=== PATIENT | female | born 1970 | race Asian ===

== ENCOUNTER 2018-04-19 07:31 | Inpatient (IN) | payer OTHER ==
[2018-04-18 09:00] LABS: EOSINOPHILS # (AUTO) 0.2 (0.0-0.4); EOSINOPHILS % 4.7 % (0.0-6.0); HEMATOCRIT 28.8 % (34.2-44.1); HEMOGLOBIN 8.4 g/dL (12.0-16.0); LYMPHOCYTES # (AUTO) 1.7 (1.0-3.2); LYMPHOCYTES % 42.2 % (18.0-39.1); MEAN CORPUSCULAR HEMOGLOBIN 20.4 pg (28-32); MEAN CORPUSCULAR HGB CONC 29.2 g/dL (31-35); MEAN CORPUSCULAR VOLUME 70.1 fL (81-99); MONOCYTES # (AUTO) 0.4 (0.2-0.8); MONOCYTES % 8.9 % (4.4-11.3); NEUTROPHILS # (AUTO) 1.7 (2.1-6.9); PLATELET COUNT 406 x10e3/uL (140-360); RED BLOOD COUNT 4.11 x10e6/uL (3.6-5.1); RED CELL DISTRIBUTION WIDTH 18.4 % (11.7-14.4)
[2018-04-18 09:19] LABS: ALANINE AMINOTRANSFERASE 12 IU/L (0-55); ALBUMIN 3.6 g/dL (3.5-5.0); ALBUMIN/GLOBULIN RATIO 1.2 (0.8-2.0); ALKALINE PHOSPHATASE 41 IU/L (40-150); ANION GAP 12.1 mmol/L (8-16); BLOOD UREA NITROGEN 10 mg/dL (7-26); BUN/CREATININE RATIO 14 (6-25); CALCIUM 8.5 mg/dL (8.4-10.2); CARBON DIOXIDE 22 mmol/L (22-29); CHLORIDE 108 mmol/L (98-107); CREATININE, SERUM 0.69 mg/dL (0.57-1.11); EST GLOMERULAR FILTRATION RATE > 60 ML/MIN (60-); GLUCOSE 84 mg/dL (74-118); POTASSIUM 4.1 mmol/L (3.5-5.1); SODIUM 138 mmol/L (136-145)
[2018-04-18 13:39] LABS: EOSINOPHILS % (MANUAL) 5 % (0-7); LYMPHOCYTES % (MANUAL) 47 % (19-48); MONOCYTES % (MANUAL) 9 % (3.4-9.0); MYELOCYTES % (MANUAL) 1 % (0-0); NEUTROPHILS % (MANUAL) 38 % (40-74)
[2018-04-18 13:40] LABS: RBC MORPHOLOGY COMMENT ABNORMAL
[2018-04-18 13:41] LABS: PLATELET ESTIMATE SLIGHTLY INCREASED
[2018-04-18 13:42] LABS: ANISOCYTOSIS MODERATE; ELLIPTOCYTE, RBC SLIGHT; HYPOCHROMASIA MODERATE; PLATELET MORPHOLOGY COMMENT NORMAL
[~2018-04-19] VITALS: Ht 157.5 cm; Wt 57.2 kg
--- OUTSIDE RECORDS SUMMARY | 2018-04-19 07:33 | XMS REPORT | Continuity of Care Document ---
Author Author [facility] Interface Address Unknown Phone Unavailable Problems Problem Status Onset Date Classification Date Reported Comments Source VOMITING/FEVER/WEAKNESS Active 01/26/2013 [facility] Medications Medication Details Route Status Patient Instructions Ordering Provider Order Date Source Cipro 500 mg oral tablet 500 mg, 1 tab, PO, Q12H, 6 tab, Substitution Allowed, TAB Active Lisandro 01/27/2013 [facility] Zofran ODT 4 mg oral tablet, disintegrating 4 mg, 1 tab, PO, BID, PRN, Dissolve tab under tongue, 10 tab, Nausea and Vomiting, Substitution AllowedDissolve tab under tongue Active Lisandro 01/27/2013 [facility] Ativan 1 mg, Route: IVP, Drug form: INJ, ONCE, Dosing Weight 52.727, kg, Priority: STAT, Start date: 01/27/13 1:07:00, Stop date: 01/27/13 1:07:00 Inactive Lisandro 01/27/2013 [facility] Cipro 500 mg, Route: PO, ONCE, Dosing Weight 52.727, kg, Priority: STAT, Start date: 01/27/13 0:44:00, Stop date: 01/27/13 0:44:00 Inactive Lisandro 01/27/2013 [facility] potassium chloride 20 mEq, Route: PO, Drug form: LIQ, ONCE, Dosing Weight 52.727, kg, Priority: Routine, Start date: 01/27/13 0:42:00, Stop date: 01/27/13 0:42:00 Inactive Lisandro 01/27/2013 [facility] ketorolac 30 mg, Route: IVP, Drug form: INJ, ONCE, Dosing Weight 52.727, kg, Priority: STAT, Start date: 01/26/13 23:01:00, Stop date: 01/26/13 23:01:00 Inactive Lisandro 01/27/2013 [facility] Zofran 4 mg, Route: IVP, Drug form: INJ, ONCE, Dosing Weight 52.727, kg, Priority: STAT, Start date: 01/26/13 23:01:00, Stop date: 01/26/13 23:01:00 Inactive [place] 01/27/2013 [facility] Sodium Chloride 0.9% (Bolus) IV 1,000 mL 1,000 mL, Rate: 1,000 ml/hr, Infuse over: 1 hr, Route: IV, Dosing Weight 52.727 kg, Total Volume: 1,000, Priority: STAT, Start date: 01/26/13 23:01:00, Duration: 1 doses or times, Stop date: 01/27/13 0:00:00, Bolus DoseBolus Dose Inactive [place] 01/27/2013 [facility] ondansetron 4 mg, Route: IVP, Drug form: INJ, ONCE, Dosing Weight 52.727, kg, Priority: STAT, Start date: 01/26/13 23:01:00, Stop date: 01/26/13 23:01:00 Inactive [place] 01/27/2013 [facility] Sodium Chloride 0.9% (Bolus) IV 1000 mL 1,000 mL, Rate: 1,000 ml/hr, Infuse over: 1 hr, Route: IV, Dosing Weight 52.727 kg, Total Volume: 1,000, Priority: STAT, Start date: 01/26/13 23:01:00, Duration: 1 doses or times, Stop date: 01/27/13 0:00:00, Bolus DoseBolus Dose Inactive [place] 01/27/2013 [facility] Allergies, Adverse Reactions, Alerts Substance Category Reaction Severity Reaction type Status Date Reported Comments Source Immunizations Immunization Date Given Site Status Last Updated Comments Source Results Order Name Results Value Reference Range Date Interpretation Comments Source VIRAL - SEROLOGY Influ A Negative (01/26/2013 23:15:00) Negative 01/27/2013 Normal [facility] VIRAL - SEROLOGY Influ B Negative 1 (01/26/2013 23:15:00) Negative 01/27/2013 Normal 1Interpretive Data: Influenza A&B Antigen: Due to the low sensitivity of this test a negative result does not exclude influenza virus infection. A diagnosis of influenza should be considered based on a patient's clinical presentation and empiric antiviral treatment should be considered, if indicated. If more conclusive testing is desired, follow-up confirmatory testing with either viral culture or PCR is warranted. [facility] CHEMISTRY CK-MB INDEX null 0.0 - 2.5 01/27/2013 Normal [facility] CHEMISTRY CK MB null 0.5 - 3.6 01/27/2013 Normal [facility] CHEMISTRY Troponin-I null 0.00 - 0.40 01/27/2013 Normal [facility] CHEMISTRY Total CK 51 unit/L 12 - 191 01/27/2013 Normal [facility] CHEMISTRY U Preg Negative (01/26/2013 22:35:00) Negative 01/27/2013 Normal [facility] CHEMISTRY AGAP 10.1 meq/L 10.0 - 20.0 01/27/2013 Normal [facility] CHEMISTRY B/C Ratio 15 6 - 25 01/27/2013 Normal [facility] CHEMISTRY Globulin 5.0 g/dL 2.0 - 4.0 01/27/2013 HI [facility] CHEMISTRY A/G Ratio 0.7 0.7 - 1.6 01/27/2013 Normal [facility] CHEMISTRY Potassium Lvl 3.1 meq/L 3.5 - 5.1 01/27/2013 LOW [facility] CHEMISTRY Sodium Lvl 132 meq/L 135 - 145 01/27/2013 LOW [facility] CHEMISTRY Chloride Lvl 98 meq/L 95 - 109 01/27/2013 Normal [facility] CHEMISTRY eGFR 63 mL/min/1.73m2 01/27/2013 2Result Comment: The eGFR is calculated using the CKD-EPI formula. In most young, healthy individuals the eGFR will be >90 mL/min/1.73m2. The eGFR declines with age. An eGFR of 60-89 may be normal in some populations, particularly the elderly, for whom the CKD-EPI formula has not been extensively validated. Use of the eGFR is not recommended in the following populations: Individuals with unstable creatinine concentrations, including patients and those with serious co-morbid conditions. Patients with extremes in muscle mass or diet. The data above are obtained from the National Kidney Disease Education Program (NKDEP) which additionally recommends that when the eGFR is used in patients with extremes of body mass index for purposes of drug dosing, the eGFR should be multiplied by the estimated BMI. [facility] CHEMISTRY ASPARTATE TRANSAMINASE 34 unit/L 0 - 37 01/27/2013 Normal [facility] CHEMISTRY Bili Total 0.7 mg/dL 0.2 - 1.3 01/27/2013 Normal [facility] CHEMISTRY Albumin Lvl 3.6 g/dL 3.5 - 5.0 01/27/2013 Normal [facility] CHEMISTRY ALANINE AMINOTRANSFERASE 26 unit/L 0 - 65 01/27/2013 Normal [facility] CHEMISTRY Calcium Lvl 9.3 mg/dL 8.5 - 10.5 01/27/2013 Normal [facility] CHEMISTRY Alk Phos 86 unit/L 39 - 136 01/27/2013 Normal [facility] CHEMISTRY Creatinine Lvl 1.1 mg/dL 0.5 - 1.4 01/27/2013 Normal [facility] CHEMISTRY BUN 16 mg/dL 7 - 22 01/27/2013 Normal [facility] CHEMISTRY Glucose Lvl 114 mg/dL 70 - 99 01/27/2013 HI 3Interpretive Data: Adult reference range values reflect the clinical guidelines of the [place] [employer]. [facility] CHEMISTRY Total Protein 8.6 g/dL 6.4 - 8.4 01/27/2013 HI [facility] CHEMISTRY CO2 27 meq/L 24 - 32 01/27/2013 Normal [facility] HEMATOLOGY Lymphocytes 6.2 % 20.0 - 40.0 01/27/2013 LOW [facility] HEMATOLOGY Segs 86.8 % 45.0 - 75.0 01/27/2013 [place] [facility] HEMATOLOGY Monocytes 7.0 % 2.0 - 12.0 01/27/2013 Normal [facility] HEMATOLOGY Eosinophils 0.0 % 0.0 - 4.0 01/27/2013 Normal [facility] HEMATOLOGY Basophils 0.0 % 0.0 - 1.0 01/27/2013 Normal [facility] HEMATOLOGY Segs-Bands # 9.7 K/CMM 1.5 - 8.1 01/27/2013 HI [facility] HEMATOLOGY Lymphocytes # 0.7 K/CMM 1.0 - 5.5 01/27/2013 LOW [facility] HEMATOLOGY Polychrom Slight (01/26/2013 22:35:00) None Seen 01/27/2013 Normal [facility] HEMATOLOGY Plt Morph Normal (01/26/2013 22:35:00) 01/27/2013 Normal [facility] HEMATOLOGY Eosinophils # 0.0 K/CMM 0.0 - 0.5 01/27/2013 Normal [facility] HEMATOLOGY Monocytes # 0.8 K/CMM 0.0 - 0.8 01/27/2013 Normal [facility] HEMATOLOGY Schistocyte 1-3 per HPF (01/26/2013 22:35:00) None Seen 01/27/2013 Normal [facility] HEMATOLOGY Elliptocyte Slight *ABN* (01/26/2013 22:35:00) None Seen 01/27/2013 ABN [facility] HEMATOLOGY Hypochrom Slight (01/26/2013 22:35:00) None Seen 01/27/2013 Normal [facility] HEMATOLOGY Microcyte 1+ *ABN* (01/26/2013 22:35:00) None Seen 01/27/2013 ABN [facility] HEMATOLOGY Basophils # 0.0 K/CMM 0.0 - 0.2 01/27/2013 Normal [facility] HEMATOLOGY Hgb 9.1 g/dL 12.0 - 16.0 01/27/2013 [facility] HEMATOLOGY Hct 28.9 % 36.0 - 48.0 01/27/2013 [facility] HEMATOLOGY RBC X 10x6 4.16 M/CMM 4.20 - 5.40 01/27/2013 [facility] HEMATOLOGY MCV 69.3 fL 81.0 - 99.0 01/27/2013 [facility] HEMATOLOGY MCH 21.9 pg 27.0 - 31.0 01/27/2013 [facility] HEMATOLOGY RDW 19.1 % 11.5 - 14.5 01/27/2013 [facility] HEMATOLOGY Platelet 291 K/CMM 133 - 450 01/27/2013 Normal [facility] HEMATOLOGY MCHC 31.6 g/dL 32.0 - 36.0 01/27/2013 [facility] HEMATOLOGY MPV 8.1 fL 7.4 - 10.4 01/27/2013 Normal [facility] HEMATOLOGY WBC X 10x3 11.2 K/CMM 3.7 - 10.4 01/27/2013 [facility] URINALYSIS UA Bili Negative *NA* (01/26/2013 22:35:00) Negative 01/27/2013 [facility] URINALYSIS UA Urobilinogen 2.0 mg/dL 0.1 - 1.0 01/27/2013 [facility] URINALYSIS UA Blood Small *ABN* (01/26/2013 22:35:00) Negative 01/27/2013 ABN [facility] URINALYSIS UA Mucus Few /LPF None Seen 01/27/2013 [facility] URINALYSIS UA Sq Epi Moderate /LPF Few 01/27/2013 ABN [facility] URINALYSIS UA Nitrite Positive *ABN* (01/26/2013 22:35:00) Negative 01/27/2013 ABN [facility] URINALYSIS UA Leuk Est Moderate *ABN* (01/26/2013 22:35:00) Negative 01/27/2013 [facility] URINALYSIS UA Bacteria Many /HPF None Seen 01/27/2013 ABN [facility] URINALYSIS UA RBC 4 /HPF 0 - 2 01/27/2013 HI [facility] URINALYSIS UA WBC 35 /HPF 0 - 5 01/27/2013 HI [facility] URINALYSIS UA Ketones 20 mg/dL Negative 01/27/2013 ABN [facility] URINALYSIS UA Glucose Negative mg/dL Negative 01/27/2013 [facility] URINALYSIS UA Protein 30 mg/dL Negative 01/27/2013 ABN [facility] URINALYSIS UA pH 5.0 5.0 - 8.0 01/27/2013 Normal [facility] URINALYSIS UA Color Yellow *NA* (01/26/2013 22:35:00) Yellow 01/27/2013 [facility] URINALYSIS UA Turbidity Marked *ABN* (01/26/2013 22:35:00) Clear 01/27/2013 ABN [facility] URINALYSIS UA Spec Grav 1.011 <=1.030 01/27/2013 Normal [facility] Vital Signs Vital Sign Value Date Comments Source Heart Rate 83 01/27/2013 [facility] Temperature Oral (F) 98.5 F 01/27/2013 [facility] Diastolic (mm Hg) 70 01/27/2013 [facility] Systolic (mm Hg) 102 01/27/2013 [facility] Respitory Rate 16 01/27/2013 [facility] Systolic (mm Hg) 101 01/27/2013 [facility] Diastolic (mm Hg) 60 01/27/2013 [facility] Respitory Rate 16 01/27/2013 [facility] Heart Rate 92 01/27/2013 [facility] Diastolic (mm Hg) 55 01/27/2013 [facility] Systolic (mm Hg) 99 01/27/2013 [facility] Temperature Oral (F) 98.7 F 01/27/2013 [facility] Respitory Rate 18 01/27/2013 [facility] Heart Rate 91 01/27/2013 [facility] Weight 52.727 01/27/2013 [facility] Temperature Oral (F) 98.2 F 01/27/2013 [facility] Height 152.4 cm 01/27/2013 [facility] Encounters Location Location Details Encounter Type Encounter Number Reason For Visit Attending Provider ADM Date DC Date Status Source [facility] Emergency [id number] SANCHEZ HERNANDEZ 01/26/2013 01/27/2013 Active [facility] Procedures Procedure Code Date Perfomer Comments Source Emergency department visit for the evaluation and management of a patient, which requires these 3 garay components within the constraints imposed by the urgency of the patient's clinical condition and/or mental status: A comprehensive history; A comprehensi 39670 01/27/2013 [facility] Injection or Infusion of Other Therapeutic or Prophylactic Substance 99.29 01/27/2013 [facility] Intravenous infusion, hydration; each additional hour (List separately in addition to code for primary procedure) 22223 01/27/2013 [facility] Therapeutic, prophylactic, or diagnostic injection (specify substance or drug); each additional sequential intravenous push of a new substance/drug (List separately in addition to code for primary procedure) 04887 01/27/2013 [facility] Therapeutic, prophylactic, or diagnostic injection (specify substance or drug); intravenous push, single or initial substance/drug 04227 01/27/2013 [facility]
--- OUTSIDE RECORDS SUMMARY | 2018-04-19 07:34 | XMS REPORT | CCD ---
Author Author Auto Generated Organization [facility] Address Unknown Phone Unavailable Care Team Providers Care Plate Furnace Operator Name Role Phone Mary Ann Mcmahon CP Allergies, Adverse Reactions, Alerts Substance Reaction Status NKDA Active Medications Medication Instructions Start Date End Date Status Cipro 500 mg oral 500 mg, 1 tab, PO, Q12H, 6 tab, 01/27/2013 01/30/2013 Ordered tablet Substitution Allowed, TAB Zofran ODT 4 mg oral 4 mg, 1 tab, PO, BID, PRN, Dissolve 01/27/2013 Ordered tablet, tab under tongue, 10 tab, Nausea disintegrating and Vomiting, Substitution Allowed Dissolve tab under tongue Cipro 500 mg, Route: PO, ONCE, Dosing 01/27/2013 01/27/2013 Completed Weight 52.727, kg, Priority: STAT, Start date: 01/27/13 0:44:00, Stop date: 01/27/13 0:44:00 potassium chloride 20 mEq, Route: PO, Drug form: LIQ, 01/27/2013 01/27/2013 Completed ONCE, Dosing Weight 52.727, kg, Priority: Routine, Start date: 01/27/13 0:42:00, Stop date: 01/27/13 0:42:00 ketorolac 30 mg, Route: IVP, Drug form: INJ, 01/26/2013 01/26/2013 Completed ONCE, Dosing Weight 52.727, kg, Priority: STAT, Start date: 01/26/13 23:01:00, Stop date: 01/26/13 23:01:00 Zofran 4 mg, Route: IVP, Drug form: INJ, 01/26/2013 01/26/2013 Completed ONCE, Dosing Weight 52.727, kg, Priority: STAT, Start date: 01/26/13 23:01:00, Stop date: 01/26/13 23:01:00 Sodium Chloride 0.9% 1,000 mL, Rate: 1,000 ml/hr, Infuse 01/26/2013 01/26/2013 Discontinued (Bolus) IV 1,000 mL over: 1 hr, Route: IV, Dosing Weight 52.727 kg, Total Volume: 1,000, Priority: STAT, Start date: 01/26/13 23:01:00, Duration: 1 doses or times, Stop date: 01/27/13 0:00:00, Bolus Dose Bolus Dose ondansetron 4 mg, Route: IVP, Drug form: INJ, 01/26/2013 01/26/2013 Completed ONCE, Dosing Weight 52.727, kg, Priority: STAT, Start date: 01/26/13 23:01:00, Stop date: 01/26/13 23:01:00 Sodium Chloride 0.9% 1,000 mL, Rate: 1,000 ml/hr, Infuse 01/26/2013 01/26/2013 Completed (Bolus) IV 1000 mL over: 1 hr, Route: IV, Dosing Weight 52.727 kg, Total Volume: 1,000, Priority: STAT, Start date: 01/26/13 23:01:00, Duration: 1 doses or times, Stop date: 01/27/13 0:00:00, Bolus Dose Bolus Dose Ativan 1 mg, Route: IVP, Drug form: INJ, 01/27/2013 01/27/2013 Completed ONCE, Dosing Weight 52.727, kg, Priority: STAT, Start date: 01/27/13 1:07:00, Stop date: 01/27/13 1:07:00 Vital Signs Most recent to oldest [Reference Range]: 1 2 3 Height 152.4 cm (01/26/2013 21:44:00) Temperature Oral [96.4-99.1 DegF] 98.5 DegF (01/27/2013 02:20:00) 98.7 DegF (01/27/2013 00:26:00) 98.2 DegF (01/26/2013 21:44:00) Systolic Blood Pressure [90-140 mmHg] 102 mmHg (01/27/2013 02:20:00) 101 mmHg (01/27/2013 00:40:00) 99 mmHg (01/27/2013 00:26:00) Diastolic Blood Pressure [60-90 mmHg] 70 mmHg (01/27/2013 02:20:00) 60 mmHg (01/27/2013 00:40:00) 55 mmHg *LOW* (01/27/2013 00:26:00) Respiratory Rate [14-20 BRMIN] 16 BRMIN (01/27/2013 02:20:00) 16 BRMIN (01/27/2013 00:26:00) 18 BRMIN (01/26/2013 23:05:00) Peripheral Pulse Rate [60-100 bpm] 83 bpm (01/27/2013 02:20:00) 92 bpm (01/27/2013 00:26:00) 91 bpm (01/26/2013 23:05:00) Weight 52.727 kg (01/26/2013 21:44:00) Results URINALYSIS Most recent to oldest [Reference Range]: 1 UA Turbidity [Clear] Marked *ABN* (01/26/2013 22:35:00) UA Color [Yellow] Yellow *NA* (01/26/2013 22:35:00) UA pH [5.0-8.0] 5.0 (01/26/2013 22:35:00) UA Spec Grav [<=1.030] 1.011 (01/26/2013 22:35:00) UA Glucose [Negative mg/dL] Negative mg/dL *NA* (01/26/2013 22:35:00) UA Blood [Negative] Small *ABN* (01/26/2013 22:35:00) UA Ketones [Negative mg/dL] 20 mg/dL *ABN* (01/26/2013 22:35:00) UA Protein [Negative mg/dL] 30 mg/dL *ABN* (01/26/2013 22:35:00) UA Urobilinogen [0.1-1.0 mg/dL] 2.0 mg/dL *HI* (01/26/2013 22:35:00) UA Bili [Negative] Negative *NA* (01/26/2013 22:35:00) UA Leuk Est [Negative] Moderate *ABN* (01/26/2013 22:35:00) UA Nitrite [Negative] Positive *ABN* (01/26/2013 22:35:00) UA WBC [0-5 /HPF] 35 /HPF *HI* (01/26/2013 22:35:00) UA RBC [0-2 /HPF] 4 /HPF *HI* (01/26/2013 22:35:00) UA Bacteria [None Seen /HPF] Many /HPF *ABN* (01/26/2013 22:35:00) UA Sq Epi [Few /LPF] Moderate /LPF *ABN* (01/26/2013 22:35:00) UA Mucus [None Seen /LPF] Few /LPF *NA* (01/26/2013 22:35:00) VIRAL - SEROLOGY Most recent to oldest [Reference Range]: 1 Influ A [Negative] Negative (01/26/2013 23:15:00) Influ B [Negative] Negative 1 (01/26/2013 23:15:00) 1Interpretive Data: Influenza A&B Antigen: Due to the low sensitivity of this test a negative result does not exclude influ charlene virus infection. A diagnosis of influenza should be considered based on a p atient's clinical presentation and empiric antiviral treatment should be conside red, if indicated. If more conclusive testing is desired, follow-up confirmatory testing with either viral culture or PCR is warranted. CHEMISTRY Most recent to oldest [Reference Range]: 1 Sodium Lvl [135-145 mEq/L] 132 mEq/L *LOW* (01/26/2013 22:35:00) Potassium Lvl [3.5-5.1 mEq/L] 3.1 mEq/L *LOW* (01/26/2013 22:35:00) Chloride Lvl [95-109 mEq/L] 98 mEq/L (01/26/2013 22:35:00) CO2 [24-32 mEq/L] 27 mEq/L (01/26/2013 22:35:00) AGAP [10.0-20.0 mEq/L] 10.1 mEq/L (01/26/2013 22:35:00) Creatinine Lvl [0.5-1.4 mg/dL] 1.1 mg/dL (01/26/2013 22:35:00) eGFR 63 mL/min/1.73m2 2 *NA* (01/26/2013 22:35:00) BUN [7-22 mg/dL] 16 mg/dL (01/26/2013:35:00) B/C Ratio [6-25] 15 (01/26/2013:35:00) Glucose Lvl [70-99 mg/dL] 114 mg/dL 3 *HI* (01/26/2013:35:00) Total Protein [6.4-8.4 g/dL] 8.6 g/dL *HI* (01/26/2013:35:00) Albumin Lvl [3.5-5.0 g/dL] 3.6 g/dL (01/26/2013:35:00) Globulin [2.0-4.0 g/dL] 5.0 g/dL *HI* (01/26/2013:35:00) A/G Ratio [0.7-1.6] 0.7 (01/26/2013:35:00) Calcium Lvl [8.5-10.5 mg/dL] 9.3 mg/dL (01/26/2013:35:00) ALT [0-65 unit/L] 26 unit/L (01/26/2013:35:00) AST [0-37 unit/L] 34 unit/L (01/26/2013:35:00) Alk Phos [39-136 unit/L] 86 unit/L (01/26/2013:35:00) Bili Total [0.2-1.3 mg/dL] 0.7 mg/dL (01/26/2013:35:00) Total CK [12-191 unit/L] 51 unit/L (01/26/2013:35:00) CK MB [0.5-3.6 ng/mL] <0.5 ng/mL (01/26/2013:35:00) CK MB Index [0.0-2.5] <1.0 (01/26/2013:35:00) Troponin-I [0.00-0.40 ng/mL] <0.02 ng/mL (01/26/2013:35:00) U Preg [Negative] Negative (01/26/2013:35:00) 2Result Comment: The eGFR is calculated using [...] from the National Kidney Disease Education Program ( NKDEP) which additionally recommends that when the eGFR is used in patients with extremes of body mass index for purposes of drug dosing, the eGFR should be mul tiplied by the estimated BMI. 3Interpretive Data: Adult reference range values reflect the clinical guidelines of the [place] [employer]. HEMATOLOGY Most recent to oldest [Reference Range]: 1 WBC [3.7-10.4 K/CMM] 11.2 K/CMM *HI* (01/26/2013 22:35:00) RBC [4.20-5.40 M/CMM] 4.16 M/CMM *LOW* (01/26/2013 22:35:00) Hgb [12.0-16.0 g/dL] 9.1 g/dL *LOW* (01/26/2013 22:35:00) Hct [36.0-48.0 %] 28.9 % *LOW* (01/26/2013 22:35:00) MCV [81.0-99.0 fL] 69.3 fL *LOW* (01/26/2013 22:35:00) MCH [27.0-31.0 pg] 21.9 pg *LOW* (01/26/2013 22:35:00) MCHC [32.0-36.0 g/dL] 31.6 g/dL *LOW* (01/26/2013 22:35:00) RDW [11.5-14.5 %] 19.1 % *HI* (01/26/2013 22:35:00) Platelet [133-450 K/CMM] 291 K/CMM (01/26/2013 22:35:00) MPV [7.4-10.4 fL] 8.1 fL (01/26/2013 22:35:00) Segs [45.0-75.0 %] 86.8 % *HI* (01/26/2013 22:35:00) Lymphocytes [20.0-40.0 %] 6.2 % *LOW* (01/26/2013 22:35:00) Monocytes [2.0-12.0 %] 7.0 % (01/26/2013 22:35:00) Eosinophils [0.0-4.0 %] 0.0 % (01/26/2013 22:35:00) Basophils [0.0-1.0 %] 0.0 % (01/26/2013 22:35:00) Segs-Bands # [1.5-8.1 K/CMM] 9.7 K/CMM *HI* (01/26/2013 22:35:00) Lymphocytes # [1.0-5.5 K/CMM] 0.7 K/CMM *LOW* (01/26/2013 22:35:00) Monocytes # [0.0-0.8 K/CMM] 0.8 K/CMM (01/26/2013 22:35:00) Eosinophils # [0.0-0.5 K/CMM] 0.0 K/CMM (01/26/2013 22:35:00) Basophils # [0.0-0.2 K/CMM] 0.0 K/CMM (01/26/2013 22:35:00) Polychrom [None Seen] Slight (01/26/2013 22:35:00) Hypochrom [None Seen] Slight (01/26/2013 22:35:00) Microcyte [None Seen] 1+ *ABN* (01/26/2013 22:35:00) Elliptocyte [None Seen] Slight *ABN* (01/26/2013 22:35:00) Schistocyte [None Seen] 1-3 per HPF (01/26/2013 22:35:00) Plt Morph Normal (01/26/2013 22:35:00) Microbiology Reports PROCEDURE:Culture: Urine STATUS: Auth (Verified) BODY SITE: COLLECTED DATE/TIME: 01/26/2013 22:35:00 SOURCE: Urine, Clean Catch FREE TEXT SOURCE: FINAL REPORTS Final Report >100,000 CFU/mL Escherichia coli PRELIMINARY REPORTS Preliminary Report Holding For Better Growth Preliminary Report >100,000 CFU/mL Gram Negative Rods, Lactose Fermenters Identification And Sensitivity Pending SUSCEPTIBILITY REPORT Escherichia coli Antibiotic Vitek Dilution Vitek Interpretation Amikacin Susceptible Ampicillin Resistant Ampicillin/Sulbactam Intermediate Cefazolin Susceptible Cefepime Susceptible Ceftriaxone Susceptible Cefuroxime Susceptible ESBL Confirmation Negative Gentamicin Susceptible Levofloxacin Susceptible Meropenem Susceptible Nitrofurantoin Susceptible Piperacillin/Tazobactam Susceptible Tetracycline Resistant Tobramycin Susceptible Trimethoprim/Sulfamethoxazole Resistant
--- OUTSIDE RECORDS SUMMARY | 2018-04-19 07:34 | XMS REPORT | CCD ---
Author Author Auto Generated Organization [facility] Address Unknown Phone Unavailable Care Team Providers Care Spa Receptionist Name Role Phone Mary Ann Mcmahon CP [...] 16 mg/dL (01/26/2013:35:00) B/C Ratio [6-25] 15 (01/26/2013 22:35:00) Glucose Lvl [70-99 mg/dL] 114 mg/dL 3 [...] values reflect the clinical guidelines of the [place] [employer]. HEMATOLOGY Most recent to oldest [...] Susceptible Tetracycline Resistant Tobramycin Susceptible Trimethoprim/Sulfamethoxazole Resistant Procedures Procedures Date Related Diagnosis Emergency department visit for the evaluation and management 01/27/2013 00:00:00 of a patient, which requires these 3 garay components within the constraints imposed by the urgency of the patient's clinical condition and/or mental status: A comprehensive history; A comprehensi Injection or Infusion of Other Therapeutic or Prophylactic 01/27/2013 00:00:00 Substance Intravenous infusion, hydration; each additional hour (List 01/27/2013 00:00:00 separately in addition to code for primary procedure) Therapeutic, prophylactic, or diagnostic injection (specify 01/27/2013 00:00:00 substance or drug); each additional sequential intravenous push of a new substance/drug (List separately in addition to code for primary procedure) Therapeutic, prophylactic, or diagnostic injection (specify 01/27/2013 00:00:00 substance or drug); each additional sequential intravenous push of a new substance/drug (List separately in addition to code for primary procedure) Therapeutic, prophylactic, or diagnostic injection (specify 01/27/2013 00:00:00 substance or drug); intravenous push, single or initial substance/drug
--- OUTSIDE RECORDS SUMMARY | 2018-04-19 07:34 | XMS REPORT | CCD ---
Author Author Auto Generated Organization [facility] Address Unknown Phone Unavailable Care Team Providers Care Roller Picker Name Role Phone Mary Ann Mcmahon CP [...] values reflect the clinical guidelines of the [place] [employer]. HEMATOLOGY Most recent to oldest [...]
--- OUTSIDE RECORDS SUMMARY | 2018-04-19 07:34 | XMS REPORT | CCD ---
Author Author Auto Generated Organization [facility] Address Unknown Phone Unavailable Care Team Providers Care Staff Toxicologist Name Role Phone Mary Ann Mcmahon CP [...] values reflect the clinical guidelines of the [place] [employer]. HEMATOLOGY Most recent to oldest [...]
--- OUTSIDE RECORDS SUMMARY | 2018-04-19 07:34 | XMS REPORT | CCD ---
Author Author Auto Generated Organization [facility] Address Unknown Phone Unavailable Care Team Providers Care Engineering Operator Name Role Phone Mary Ann Mcmahon [...] values reflect the clinical guidelines of the [place] [employer]. HEMATOLOGY Most recent to oldest [...]
[2018-04-19] MEDS ORDERED: CEFAZOLIN SOD 2 GM/D5W 50ML 50 ML IV ONE (07:44)
[2018-04-19] MEDS ORDERED: SODIUM CHLORIDE 0.9% 250ML 250 ML ONE (09:03)
[2018-04-19] MEDS ORDERED: ONDANSETRON HCL INJ 2MG/ML 2ML 2 MG/ML VIAL IV PRN (10:15)
[2018-04-19] MEDS ORDERED: DIPHENHYDRAMINE HCL 25 MG CAP PO PRN (10:15)
[2018-04-19] MEDS ORDERED: DOCUSATE SODIUM 100 MG CAP PO PRN (10:15)
[2018-04-19] MEDS ORDERED: ACETAMINOPHEN 325 MG TAB PO PRN (10:15)
[2018-04-19] MEDS ORDERED: SIMETHICONE 80 MG CHEW PO PRN (10:15)
[2018-04-19] MEDS ORDERED: METHYLENE BLUE 1% INJ 10 ML VIAL INJ ONE ×2 (11:02→11:37)
[2018-04-19] MEDS ORDERED: SODIUM CHLORIDE 0.9% 0 ML ONE (11:02)
[2018-04-19] MEDS ORDERED: HYDROMORPHONE 2MG/ML 2 MG/ML ML ONE (12:40)
--- NOTE | 2018-04-19 14:12 | NUR ---
Patient arrived from PACU, sleepy but easily arouse. Patient able to transfer with minimal assistance to bed from stretcher. Spouse at the bedside. POC discussed. Initial assessment started. Vital signs are stable. Abdominal dressing intact and Ramey to bedside drainage bag. Bed in lowest position, locked and call soler within reach.
[2018-04-19 14:29] VITALS: BP 115/51
[2018-04-19] MEDS: LACTATED RINGER'S 1,000 ML IV SCH ×3 (14:30→23:15)
--- NOTE | 2018-04-19 14:56 | Operative Report ---
DATE OF PROCEDURE: April 19, 2018 ADDENDUM TO OPERATIVE REPORT Before performing the cystoscopy, the abdomen was closed in layers. The rectus fascia was closed using PDS 0 continuous stitch. Two sutures were used. The skin was closed with ambrose. Following this, cystoscopy was performed and showed the ureteric orifices were patent with free efflux of urine coming from both ureters. The patient tolerated the procedure well. The lap, instrument and needle counts were correct x2 at the end of the procedure. Job#: [id number]
--- NOTE | 2018-04-19 15:13 | Operative Report ---
DATE OF PROCEDURE: April 19, 2018 PREOPERATIVE DIAGNOSES 1. Fibroid uterus. 2. Anemia. POSTOPERATIVE DIAGNOSES 1. Fibroid uterus. 2. Anemia. PROCEDURE: Total abdominal hysterectomy. ESTIMATED BLOOD LOSS: 150 mL. OCEANOLOGY TEACHER: Dr. Suh COMPLICATIONS: Cystotomy. The patient was taken to the OR and general anesthesia was administered. The patient was prepped and draped in the normal sterile fashion, and placed in the dorsal lithotomy position. The patient had 24 weeks size uterus. Previous section with a midline scar. A midline subumbilical incision was made with the scalpel. Previous scar was excised. Rectus fascia was opened in the midline and dissected off the underlying tissues. Midline was identified, and peritoneum was tented and entered sharply using Metzenbaum scissors. Peritoneum was straight, and using curved Porter scissors vertically, enlarged uterus with fibroids was noted with multiple fibroids in the fundus, as well as the cervical region. Adhesions between the rectum and the vagina posteriorly, severe adhesions between the bladder and cervix, and the anterior abdominal wall at the level of the symphysis pubis. The uterus was delivered outside the wound, and adhesions between the uterus and the surrounding structure was lysed using the Bovie. Following this, 2 Maria Luz clamps were applied on each side of the cornua. Salpingectomy was performed on the left side using the LigaSure, the right side of the tube was adherent to the surrounding small bowel and left behind. Following this, 2 straight Zeppelin clamps were applied medial to the adnexa on each side of the uterus, cut and pedicles secured with transfixion suture of 0 Vicryl. More bites were made to separate the adnexa from the size of the uterus on both sides. This was performed the Zeppelin clamp. Pedicles were clamped, cut and secured with transfixion suture of 0 Vicryl. Following this, the bladder was seen to be quite adherent to the cervix and lower segment, as well as the anterior abdominal wall that was dissected using the Metzenbaum scissors. During that procedure, cystotomy of 2 cm was performed. Recognized immediately at that stage it was sutured using 2-0 Vicryl suture in 2 layers. At the end of the procedure, methylene blue was injected through the Ramey of 300 mL and showed no leakage from the suture line. Following the repair, the bladder was dissected off the cervix gently with gentle sweeps as well as Ray-Chris wrapped on the index finger. Two curved separate clamps applied on each side of the uterus at the uterine angle. The uterus was amputated and hysterectomy was done initially. The vessels were ligated using 0 Vicryl sutures. Following this, the cervix was held with Ese. Two straight Ese clamps were applied on each side of the uterus medial to the uterine vessels and cut. Pedicle sutures were then sutured with 0 Vicryl. More dissection of the bladder was performed with Metzenbaum scissors. Right angle Zeppelin clamps applied on the vagina on each side of the cervix. The cervix was amputated and sent to pathology. Vaginal vault was closed with interrupted sutures of 0 Vicryl. Ureters were inspected. The abdominal cavity showed normal cavity. No . However, decision was made to carry on with the cystoscopy, which was performed using 30-degree scope and saline for bladder distention. Good visualization of the pedicles was noted, and showed free fluid coming from the ureters and pedicles confirming the patency of both ureters. Bladder was emptied. Ramey catheter was placed inside to drain the bladder. The patient tolerated the procedure well. Lap, sponge and needle counts were correct times 2 at the end of the procedure. Job#: [id number] LEYDA
[2018-04-19 15:33] VITALS: BP 115/51
[2018-04-19] MEDS: LEVOFLOXACIN 500MG/D5W 100ML 100 ML IV SCH (15:54)
[2018-04-19] MEDS: KETOROLAC TROMETHAMINE 30 MG/ML VIAL IM PRN ×2 (15:54→22:05)
[2018-04-19 16:01] VITALS: BP 124/74
[2018-04-19 16:08] VITALS: BP 124/74
--- NOTE | 2018-04-19 17:45 | NUR ---
Patient is resting quietly in the bed without any complaints at this time. Patient declined dinner stating she was not hungry.
[2018-04-19] MEDS: HYDROCODONE/APAP 10MG-325MG TAB PO PRN ×2 (18:42→23:22)
[2018-04-19] MEDS ORDERED: MIDAZOLAM HCL 2 MG/2 ML VIAL ONE (19:01)
[2018-04-19] MEDS ORDERED: FENTANYL CITRATE/PF 100MCG/2 ML INJ ONE (19:01)
[2018-04-19] MEDS ORDERED: ONDANSETRON HCL INJ 2MG/ML 2ML 2 MG/ML VIAL ONE (19:28)
[2018-04-19] MEDS ORDERED: ROCURONIUM BROMIDE 10 MG/ML 5ML VIAL ONE (19:28)
[2018-04-19] MEDS ORDERED: PROPOFOL IV EMULSION 10 MG/ML 20 ML VIAL ONE (19:28)
[2018-04-19] MEDS ORDERED: DEXAMETHASONE SOD PHOS INJ 4 MG/ML VIAL ONE (19:28)
[2018-04-19] MEDS ORDERED: SEVOFLURANE INHAL SOLN 250 ML PEN BTL ONE (19:28)
[2018-04-19] MEDS ORDERED: KETOROLAC TROMETHAMINE 30 MG/ML VIAL ONE (19:28)
--- NOTE | 2018-04-19 19:35 | NUR ---
SMALL AMOUNT OF DRY BLOOD NOTED TO THE SURGICAL DRESSING ON THE ABDOMEN, PATIENT C/O PAIN TO THE BACK. REPOSITION FOR COMFORT, PAIN MEDICATION NOT DUE YET. CALL LIGHT WITHIN EASY REACH, NO RESPIRATORY DISTRESS OBSERVED.
[2018-04-19 20:00] VITALS: BP 109/58
--- NOTE | 2018-04-19 22:06 | NUR ---
PATIENT C/O SEVERE BACK PAIN WITH PAIN SCORE #10, MEDICATED WITH TORADOL IM ORDERED. PATIENT ASSISTED TO REPOSITION ON THE LEFT SIDE FOR COMFORT. NO VAGINAL BLEEDING NOTED, CALL LIGHT WITHIN EASY REACH.
[2018-04-20] VITALS (7 sets, daily range): BP systolic 102–117; BP diastolic 54–60
--- NOTE | 2018-04-20 04:39 | NUR ---
PATIENT IS ASLEEP, SHE'S EASY TO AROUSE. SHE C/O PAIN TO THE LOWER BACK WITH PAIN SCORE #5, HOWEVER, SHE REFUSED PAIN MEDICATION WHEN OFFER. DRESSING REMAINS THE SAME TO THE ABDOMEN WITHOUT ACTIVE BLEEDING, SHE WAS TOLD TO NOTIFY THE PRIMARY NURSE IF SHE NEEDS PAIN MEDICATION.
[2018-04-20 05:57] LABS: BASOPHILS % 0.6 % (0.0-1.0); EOSINOPHILS % 0.3 % (0.0-6.0); HEMATOCRIT 23.1 % (34.2-44.1); MEAN CORPUSCULAR HEMOGLOBIN 21.3 pg (28-32); MEAN CORPUSCULAR HGB CONC 30.3 g/dL (31-35); MEAN CORPUSCULAR VOLUME 70.2 fL (81-99); MONOCYTES # (AUTO) 0.7 (0.2-0.8); MONOCYTES % 9.9 % (4.4-11.3); NEUTROPHILS # (AUTO) 4.5 (2.1-6.9); NEUTROPHILS % 61.9 % (38.7-80.0); PLATELET COUNT 309 x10e3/uL (140-360); RED BLOOD COUNT 3.29 x10e6/uL (3.6-5.1); RED CELL DISTRIBUTION WIDTH 19.2 % (11.7-14.4)
--- NOTE | 2018-04-20 07:27 | NUR ---
MESSAGE LEFT ON DR SHEARER PHONE TO CALL THIS FACILITY REGARDING HIS PATIENT IN RM#[id number] IN REGARDS TO LOW HEMOGLOBIN AND HEMATOCRIT.
[2018-04-20] MEDS: KETOROLAC TROMETHAMINE 30 MG/ML VIAL IM PRN ×2 (07:31→21:35)
--- NOTE | 2018-04-20 07:35 | NUR ---
Received patient and walking rounds complete. Patient resting in bed at this time, no signs of distress noted. Bed in lowest position, wheels locked, side rails up x2, call light in reach.
[2018-04-20] MEDS: LACTATED RINGER'S 1,000 ML IV SCH (09:30)
--- NOTE | 2018-04-20 11:30 | NUR ---
Patient A/O X3, respirations even and unlabored on room air. Last bowel movement Wednesday04/18/18, bowel sounds present. Patient has a Ramey and is putting out orange colored urine. SCD's on patient at this time. Right hand 20 gauge IV, saline locked. Patient is ambulatory with assist. Abdominal incision dressing is clean, dry and intact. Ambulated patient down the hallway with walker. No signs of distress at this time. Will continue to monitor.
[2018-04-20] MEDS: HYDROCODONE/APAP 10MG-325MG TAB PO PRN ×2 (11:55→18:17)
[2018-04-20] MEDS: LEVOFLOXACIN 500MG/D5W 100ML 100 ML IV SCH (11:55)
[2018-04-21] VITALS (8 sets, daily range): BP systolic 98–122; BP diastolic 51–58
[2018-04-21] MEDS: HYDROCODONE/APAP 10MG-325MG TAB PO PRN ×3 (03:55→15:59)
[2018-04-21 06:05] LABS: BASOPHILS % 0.5 % (0.0-1.0); EOSINOPHILS # (AUTO) 0.2 (0.0-0.4); EOSINOPHILS % 2.7 % (0.0-6.0); LYMPHOCYTES # (AUTO) 1.6 (1.0-3.2); LYMPHOCYTES % 28.3 % (18.0-39.1); MEAN CORPUSCULAR HEMOGLOBIN 21.2 pg (28-32); MEAN CORPUSCULAR HGB CONC 29.7 g/dL (31-35); MEAN CORPUSCULAR VOLUME 71.4 fL (81-99); MONOCYTES # (AUTO) 0.5 (0.2-0.8); MONOCYTES % 8.6 % (4.4-11.3); NEUTROPHILS # (AUTO) 3.3 (2.1-6.9); NEUTROPHILS % 59.5 % (38.7-80.0); PLATELET COUNT 280 x10e3/uL (140-360); RED BLOOD COUNT 3.11 x10e6/uL (3.6-5.1); RED CELL DISTRIBUTION WIDTH 19.8 % (11.7-14.4)
[2018-04-21 06:18] LABS: HEMATOCRIT 22.2 % (34.2-44.1); HEMOGLOBIN 6.6 g/dL (12.0-16.0)
--- NOTE | 2018-04-21 06:23 | NUR ---
CALL PLACED TO DR SHEARER TO REPORT HEMOGLOBIN/HEMATOCRIT LEVEL,PROMPTED TO LEAVE MESSAGE,MESSAGE LEFT WITH CALL BACK NUMBER.
[2018-04-21] MEDS ORDERED: ACETAMINOPHEN 325 MG TAB PO ONE ×2 (06:45→07:00)
[2018-04-21] MEDS ORDERED: DIPHENHYDRAMINE HCL 25 MG CAP PO ONE (06:45)
[2018-04-21] MEDS ORDERED: SODIUM CHLORIDE 0.9% 250ML 250 ML IV ONE (06:45)
--- NOTE | 2018-04-21 06:46 | NUR ---
DR GILLESPIE CALLED BACK(TRANSPLANT WORKER FOR DR SHEARER) REPORTED HGB/HCT LEVEL.N/O'S RECEIVED AND ENTERED.
--- NOTE | 2018-04-21 07:00 | NUR ---
REPORT GIVEN TO ONCOMING NURSE,WALKING ROUNDS MADE.PT RESTING IN BED WITH NO S/S OF DISTRESS.
--- NOTE | 2018-04-21 09:00 | NUR ---
Patient A/O X3, respirations even and unlabored on room air. Ramey in place with green colored urine. Last bowel movement was Wednesday, bowel sounds present. Abdominal dressing is clean, dry, and intact with a small amount of dry blood. Patient complaint of lower back pain 3/10 this morning, gave patient NORCO. Will continue to monitor
[2018-04-21] MEDS ORDERED: SODIUM CHLORIDE 0.9% 250ML 250 ML ONE ×2 (09:50→14:31)
--- NOTE | 2018-04-21 10:51 | NUR ---
Patient receiving blood, tolerating well. No signs of distress at this time.
--- NOTE | 2018-04-21 14:18 | NUR ---
Call placed to Dr. Panchal office and left a message regarding an order being faxed over for the cystogram retrograde with chester removal. Awaiting call back to schedule
--- NOTE | 2018-04-21 14:52 | NUR ---
Order for cystogram taken to radiology with a face sheet for scheduling prior to discharge. Follow up in the morning. Gave order to Dc in radiology
--- NOTE | 2018-04-21 15:13 | NUR ---
Patient receiving second unit of blood, tolerating well. Will continue to monitor. Vitals stable
--- NOTE | 2018-04-21 16:00 | NUR ---
Educated spouse and patient on Ramey care. Informed spouse and patient that patient may be sent home with a smaller Ramey bag and to include Ramey care instructions whenever discharging patient. Patient and spouse verbalized understanding.
[2018-04-21] MEDS: LEVOFLOXACIN 500MG/D5W 100ML 100 ML IV SCH (18:05)
[2018-04-21] MEDS: KETOROLAC TROMETHAMINE 30 MG/ML VIAL IM PRN (20:09)
[2018-04-22] VITALS: BP 127/70
[2018-04-22 04:00] VITALS: BP 115/63
[2018-04-22 05:27] LABS: BASOPHILS % 0.5 % (0.0-1.0); EOSINOPHILS # (AUTO) 0.3 (0.0-0.4); EOSINOPHILS % 4.7 % (0.0-6.0); HEMATOCRIT 30.4 % (34.2-44.1); HEMOGLOBIN 9.6 g/dL (12.0-16.0); LYMPHOCYTES # (AUTO) 1.3 (1.0-3.2); LYMPHOCYTES % 22.1 % (18.0-39.1); MEAN CORPUSCULAR HEMOGLOBIN 23.4 pg (28-32); MEAN CORPUSCULAR HGB CONC 31.6 g/dL (31-35); MONOCYTES # (AUTO) 0.4 (0.2-0.8); MONOCYTES % 7.2 % (4.4-11.3); NEUTROPHILS # (AUTO) 3.7 (2.1-6.9); NEUTROPHILS % 65.1 % (38.7-80.0); PLATELET COUNT 299 x10e3/uL (140-360); RED BLOOD COUNT 4.11 x10e6/uL (3.6-5.1); RED CELL DISTRIBUTION WIDTH 20.3 % (11.7-14.4)
--- NOTE | 2018-04-22 06:28 | NUR ---
PT RESTING IN BED WITH NO S/S OF DISTRESS.RESPIRATIONS EVEN/NON LABORED.EDUCATED PT AND REGARDING RIDDLE CATH CARE,HANDOUT GIVEN TO PT/.PT/ VERBALIZED UNDERSTANDING.BED IN LOWEST/LOCKED POSITION.CALL LIGHT WITHIN EASY REACH.
--- NOTE | 2018-04-22 07:10 | NUR ---
REPORT GIVEN TO ONCOMING NURSE,WALKING ROUNDS DONE.PT RESTING IN BED WITH NO S/S OF DISTRESS.
[2018-04-22] MEDS: HYDROCODONE/APAP 10MG-325MG TAB PO PRN ×2 (07:18→16:47)
--- NOTE | 2018-04-22 07:30 | NUR ---
Received patient and a/ox3, pleasant and in bed, c/o abdl pains and medicated at this time, also medicated with stool softener, encouraged to get OOB and ambulate, Ramye in place draining c/y urine, will monitor as call light within reach.
[2018-04-22 08:01] VITALS: BP 120/72
[2018-04-22 11:13] VITALS: BP 120/72
[2018-04-22] MEDS: LEVOFLOXACIN 500MG/D5W 100ML 100 ML IV SCH (11:44)
[2018-04-22 11:52] VITALS: BP 119/63
[2018-04-22] MEDS: KETOROLAC TROMETHAMINE 30 MG/ML VIAL IM PRN (11:53)
--- NOTE | 2018-04-22 16:32 | NUR ---
Spoke with Dr. Panchal and he stated ok to discharge patient, educate on use of leg bag, prescription in the chart and appt with radiology scheduled for 05/03/18 at 8am out patient.
[2018-04-22] MEDS ORDERED: TYLENOL # 31 EA PO (16:34)
[2018-04-22] MEDS ORDERED: FEROSUL325 MG PO (16:36)
[2018-04-22 18:06] VITALS: BP 125/69
--- NOTE | 2018-04-22 18:40 | NUR ---
Educated patient on changing from Ramey bag to leg bag, demonstrated how to complete procedure well, changed to leg bag, IV line removed, provided with prescriptions and discharge summary, IV line removed with cath tip in place and dressing applied, pains well managed, orders for discharge in place and patient discharged.
--- NOTE | 2018-06-07 13:05 | Discharge Summary ---
DIAGNOSES: Total abdominal hysterectomy, fibroid uterus. HOSPITAL COURSE: The patient is a 47-year-old, who underwent total abdominal hysterectomy for large fibroid uterus. Her postoperative recovery was uneventful apart from getting blood transfusion for chronic anemia that was exacerbated by the surgery. She made unremarkable postoperative recovery. She was afebrile, tolerating p.o. and passed flatus. She was discharged home on iron pills and narcotics, to be seen in the office in two weeks' time and to do a retrograde cystogram and remove the Ramey catheter. The patient understands that fully and she will be coming to the hospital in two weeks' time to have the retrograde cystogram. All her questions were answered. Aileen Panchal MD DD/GT /[id number]
== END 2018-04-22 19:39 | disposition home or self-care (01) | DRG 743 ==
LOC: OR 07:31 → PACU V 10:16 → MED/SURG 14:20
PROVIDERS: ADMIT Obstetrics & Gynecology; ATTEND Obstetrics & Gynecology
PROC: 0TNB0ZZ Release Bladder, Open Approach (ICD-10-PCS; 2018-04-19)
PROC: 0UTC0ZZ Resection of Cervix, Open Approach (ICD-10-PCS; 2018-04-19)
PROC: 0WQF0ZZ Repair Abdominal Wall, Open Approach (ICD-10-PCS; 2018-04-19)
PROC: 30233N1 Transfusion of Nonautologous Red Blood Cells into Peripheral Vein, Percutaneous Approach (ICD-10-PCS; 2018-04-19)
PROC: 0UT90ZZ Resection of Uterus, Open Approach (ICD-10-PCS; principal; 2018-04-19 09:57)
PROC: 0UT60ZZ Resection of Left Fallopian Tube, Open Approach (ICD-10-PCS; 2018-04-19 09:57)
DX: D25.2 Subserosal leiomyoma of uterus (principal); D53.9 Nutritional anemia, unspecified
CPT/HCPCS: 36415; 80053; 84702; 85025; 86850; 86900; 86920; 88307; 93005; 96372; 96376; J0690; J1100; J1885; J1956; J2250; J2405; J7050; J7121; P9016

== ENCOUNTER → 2018-05-03 | Outpatient (CLI) | payer OTHER ==
[~2018-05-03] MED LIST: FEROSUL325 MG PO; IOTHALAMATE MEGLUMINE 17.20% 250 ML BTL ONE; TYLENOL # 31 EA PO
--- NOTE | 2018-05-03 08:55 | Diagnostic Imaging Report ---
Fluoroscopic cystogram LABEL DESIGNER(S): Liz Lackey MD Indication: Post-operative, evaluate for bladder leak. Comparison: None. Radiation Dose: Total dose: 11.9 mGy Total fluoroscopy time: 0.3 minutes Procedure: Total of 375 cc of Cysto-Contray contrast was administered via existing Ramey catheter. DISCUSSION: Washer And Crusher Tender radiograph demonstrates midline surgical ambrose overlying the lower abdomen and upper pelvis. No acute osseous abnormality. Post contrast images demonstrate satisfactory distension of the bladder and no evidence of leak. The contrast was subsequently removed and the Ramey catheter was removed. IMPRESSION: Cystogram demonstrating no evidence of bladder leak; Ramey catheter was removed. Signed by: Dr. Liz Lackey MD on 05/03/2018 8:52 AM
== END ==
LOC: DX 07:33
PROVIDERS: ATTEND Obstetrics & Gynecology
DX: D25.9 Leiomyoma of uterus, unspecified (principal)
CPT/HCPCS: 74430; Q9958